=== PATIENT | male | born 1975 | race Two or more races ===

== ENCOUNTER 2016-08-05 07:32 | Emergency (ER) | payer BC, OTHER ==
[2016-08-05] MEDS ORDERED: IOPAMIDOL 370 (76%) 100 ML VIAL IV ONE (07:33)
[2016-08-05 08:27] LABS: EOS % 0.5 % (0.9-2.9); MEAN PLATELET VOLUME 11.3 fl (7.4-10.4); NEUT % 73.6 % (43-75)
[2016-08-05 08:30] LABS: ABSOLUTE NEUTROPHIL COUNT 2.9 K/mm3 (1.8-7.7); BASO % 0.5 % (0.2-1.0); HEMOGLOBIN 13.7 gm/l (14.0-18.0); IMM NEUT% 0.3 % (0-1); LYMPH # 0.5 (1.0-4.8); LYMPH % 12.7 % (15-45); MEAN CELL VOLUME 90.1 fl (80.0-94.0); MEAN CORPUSCULAR HEMOGLOBIN 30.1 pg (27.0-31.0); MEAN CORPUSCULAR HGB CONC 33.4 g/dl (33.0-37.0); MONO # 0.5 (0.0-0.8); MONO % 12.4 % (4-12); PLATELET COUNT 107 K/mm3 (130-400); RED CELL DISTRIBUTION WIDTH 12.6 % (11.5-14.5)
[2016-08-05 08:45] LABS: ALB/GLOB RATIO 1.1 (>1.0); CALCIUM 9.1 mg/dL (8.6-10.3)
[2016-08-05 08:49] LABS: TROPONIN I < 0.01 ng/ml (0.0-0.06)
[2016-08-05 08:53] LABS: CKMB ISOENZYME 1.4 ng/ml (0.6-6.3)
--- NOTE | 2016-08-05 10:12 | CT ---
EXAMINATION: CT angiography of the thorax.CTA CHEST FOR PE INDICATION: EXAMINATION: CT angiography of the thorax.CTA CHEST FOR PE INDICATION: Cough and chest pain. COMPARISON: None. TECHNIQUE: Helical scan mode CT of the Thorax after uneventful intravenous contrast administration of 80 ml of Isovue-370. Imaging device: OWM multidetector CT scan. Helically acquired stacked images were reviewed in the axial, sagittal and coronal planes. Additional 3-D postprocessing was performed and reconstructed images were acquired at the 3D [place] workstation and reviewed as well. FINDINGS: The bolus is of good quality for diagnosis of pulmonary embolism. There are no pulmonary arterial filling defects. No vascular abnormalities are identified. The great vessels enhance normally. No significant atherosclerotic plaquing or aneurysm is detected. There is no evidence of dissection. The lung parenchyma: No discrete mass or consolidation is identified. There is diffuse increased disseminated groundglass opacity predominantly involving the upper lung zones. Subsegmental basilar sparing is noted. Findings may be a reflection of disseminated pneumonitis and less likely CHF. Reactive airways disease needs to be considered as well. Pleural effusion: None: Mediastinum: There is no central mediastinal lymphadenopathy. There is a prominent 1.4 cm hilar lymph node. The left hilum is unremarkable. There is an axial hiatal hernia. Heart size is at the limits of normal. There is no pericardial effusion. Osseus structures: No gross lytic or blastic lesions. Soft tissues: within normal limits Limited evaluation of the abdomen on this arterial phase injection reveals: no gross abnormalities. IMPRESSION: 1. Negative for pulmonary embolism. 2. Mild increased diffuse groundglass lung opacity with relative patchy basilar sparing. Findings may reflect a component of chronic allergic pneumonitis and less likely atypical infectious etiology. CHF is considered less likely. 3. Axial hiatal hernia. 4. Nonspecific prominent right hilar lymph node. The findings were uploaded to the electronic medical record for review at approximately 10:11 AM 08/05/2016
[2016-08-05] MEDS ORDERED: ACETAMINOPHEN 500 MG TABLET ONE (10:36)
[2016-08-05] MEDS ORDERED: PROCHLORPERAZINE 5 MG/ML 2 ML VIAL ONE (11:08)
[2016-08-05] MEDS ORDERED: DIPHENHYDRAMINE HCL 50 MG/1 ML VIAL ONE (11:08)
[2016-08-05 11:29] LABS: TROPONIN I < 0.01 ng/ml (0.0-0.06)
[2016-08-05 11:33] LABS: CKMB ISOENZYME 1.3 ng/ml (0.6-6.3)
== END 2016-08-05 12:18 | disposition home or self-care (01) ==
LOC: ED 07:32
DX: R51 Headache (principal); G40.909 Epilepsy, unspecified, not intractable, without status epilepticus; Z88.6 Allergy status to analgesic agent
CPT/HCPCS: 83690; 85379; 85025; 82550; 82553 ×2; 80053; 84484 ×2; 71275; 96375; 99284 ×2; 96374; 93005 ×2; J1200; J0780; A9270; Q9967

== ENCOUNTER 2016-08-05 20:27 | Emergency (ER) | payer OTHER ==
[2016-08-05] MEDS ORDERED: DIPHENHYDRAMINE HCL 50 MG/1 ML VIAL ONE (22:33)
[2016-08-05] MEDS ORDERED: ONDANSETRON 4 MG ODT TAB ONE (22:33)
[2016-08-05] MEDS ORDERED: KETOROLAC TROMETHAMINE 30 MG/ML 1 ML VIAL ONE (22:33)
[2016-08-05] MEDS ORDERED: METOCLOPRAMIDE HCL 5 MG/ML 2ML VIAL ONE (22:33)
== END 2016-08-05 23:53 | disposition home or self-care (01) ==
LOC: ED 20:27
DX: G43.109 Migraine with aura, not intractable, without status migrainosus (principal)
CPT/HCPCS: 87804; 99283 ×2; 96372 ×3; J1200; J2765; J1885; A9270